=== PATIENT | male | born 1995 | race Caucasian/White ===

== ENCOUNTER 2025-01-22 14:42 | Emergency (ER) | payer SELFPAY ==
[2025-01-22] VITALS (15 sets, daily range): BP systolic 114–149; BP diastolic 65–93; PULSE 62–85; TEMP 36.9; O2SAT 95–100; BMI 40.4
--- NOTE | 2025-01-22 15:08 | ED_ITS ---
HPI HPI - General Adult General Chief complaint: Chest Pain Stated complaint: chest pain Time Seen by Provider: 01/22/25 15:07 Source: patient Mode of arrival: walk-in Limitations: no limitations History of Present Illness HPI narrative: Patient is a 29-year-old male presents to the ER with concerns of left-sided chest pain. The patient can localize the pain to the left axillary with ten derness to palpation and movement of the left arm he also has bruising noted to the left forearm which she is unsure of where this came from. Patient reports symptoms have been present for 5 days before the onset of symptoms patient admits to using crack cocaine in which she smokes and notes that he was on a cocaine binge. He denies any shortness of breath but admits that he has wheezing from time to time from tobacco and marijuana smoking. I occasionally cough stuff up. He denies any fevers or chills. He reports his mother had a history of coronary artery disease and he expressed this is his main concern. He reports his current discomfort is mild worse with movement and palpation. He denies any abdominal pain nausea or vomiting he denies any back pain or diarrhea. He denies injecting any drugs. Patient calm and in no apparent distress at this time. Related Data Previous Rx's ?Medication ?Instructions ?Recorded methylprednisolone 4 mg tablets in 4 mg PO DAILY #21 ea 01/22/25 a dose pack (Medrol (Junior)) Allergies Allergy/AdvReac Type Severity Reaction Status Date / Time No Known Drug Allergies Allergy Verified 01/22/25 14:53 Opioid HPI Opioid Management Most Recent Opioid Data: Last Pain Scale 4 01/22/25 15:48 01/22/25 Last MAR Pain Assessment 01/22/25 15:48 Review of Systems ROS Constitutional Denies: fever, chills or change in weight Eyes Denies: change in vision or blurry vision Ears, nose, mouth, and throat Denies: throat pain, neck pain, throat swelling, difficulty swallowing or mouth pain Cardiovascular Reports: chest pain; Denies: palpitations, edema, swelling of feet/ankles, lightheadedness or shortness of breath with exertion Respiratory Reports: cough and wheezing; Denies: shortness of breath, stridor, pain on inspiration, change in phlegm color or coughing up blood Gastrointestinal Denies: abdominal pain, nausea or vomiting Genitourinary Denies: painful urination, urinary frequency or urinary urgency Musculoskeletal Denies: back pain, neck pain or extremity pain Integumentary/Breast Denies: rash, itching, redness or skin pain Neurological Denies: headache Psychiatric Denies: anxiety Hematologic/Lymphatic Denies: easy bruising Exam Narrative Exam Narrative: Nurses notes and vital signs reviewed and patient is not hypoxic. General: The patient appears well and in no apparent distress. Patient is resting comfortably on cart. Skin: Warm, dry, no pallor noted. Head: Normocephalic, atraumatic Neck: Supple, trachea mid-line, no tenderness, no lymphadenopathy Eye: Pupils are equal, round and reactive to light, EOMI Ears, Nose, Mouth, and Throat: TM are clear, normal light reflex, oral mucosa is moist, no posterior oropharynx erythema or hypertrophy, uvula is mid-line Cardiovascular: Regular Rate and Rhythm Respiratory: Patient is in no distress, no accessory muscle use, lungs are clear to auscultation, Tory wheeze that clears with cough, no rales or rhonchi. Chest Wall: Notable crepitus there is some tenderness left upper lateral chest wall tenderness near the pec insertion on the proximal humerus. Back: non-tender, no CVA tenderness Musculoskeletal: normal ROM, no tenderness, no swelling, faint linear bruising left forearm and medial biceps that is nontender, remote biceps tear noted by pt with mild popey deformity. no evidence of erythema or abscess patient has tenderness to the left AC joint and left proximal bicep without evidence of deformity full range of motion of the left shoulder axilla inspected without evidence of abscess or lymphadenopathy. Tenderness is noted to the left distal pec insertion. No clavicular tenderness. Full use of the bilateral upper extremities. GI: Normal bowel sounds, no tenderness to palpation, no masses appreciated. No rebound, guarding, or rigidity noted. Neurological: A&O x4 Psychiatric: Cooperative Constitutional Vital Signs, click to edit/add: Last Vital Signs Temp 98.4 F 01/22/25 14:53 Pulse 76 01/22/25 16:20 Resp 18 01/22/25 16:20 BP 118/74 01/22/25 16:30 Pulse Ox 95 01/22/25 16:20 O2 Del Method Room Air 01/22/25 15:37 Course Vital Signs Vital signs: Vital Signs Pulse Oximetry 100 01/22/25 14:50 Temperature 98.4 F 01/22/25 14:53 Pulse Rate 76 01/22/25 16:20 Respiratory Rate 18 01/22/25 16:20 Blood Pressure 118/74 01/22/25 16:30 Pulse Oximetry 95 01/22/25 16:20 Oxygen Delivery Method Room Air 01/22/25 15:37 Medical Decision Making MDM Narrative Medical decision making narrative: Discussed patient's symptoms over 5 days possible musculoskeletal given reproducibility on exam risk factors discussed with admission to smoking crack cocaine frequently prior to symptom onset. Labs were performed we discussed a breathing treatment and chest x-ray. He denies any fevers or chills and the patient is not hypoxic. No pleuritic pain noted. Patient reevaluated after receiving IV Toradol and breathing treatment he reports no significant change in his symptoms he has tenderness to the left AC joint pain in the left lateral chest with certain motions of his left arm we discussed his blood work and symptoms for 5 days likely not cardiac. We an extensive discussion at the bedside regarding his drug use and family history of coronary artery disease. Patient verbalized understanding with family at bedside that he is at risk for with his illicit drug use, and we have encouraged him to find sobriety and will give him resources. He also be given local family doctor for follow-up. His pain appears to be myofascial with reproducible left AC joint pain and pain with some motion of the left shoulder we we will place him on a Medrol Dosepak with the risks and benefits discussed. Patient thankful for an appointment discussed the steroid may also help his lung inflammation but he is encouraged to cut back on his marijuana use. Patient has no further concerns or questions. PERC Score is 0 Wells PE Criteria is 0 The patient is to followup with primary care physician in next 2-3 days or to return to the emergency department should any of the signs or symptoms worsen or new symptoms develop. Patient had questions answered. The patient agrees with the following Diagnosis and Treatment plan and the patient will be discharged home. Lab Data Lab results reviewed: Yes I reviewed the patient's lab results Labs: Lab Results 01/22/25 01/22/25 Range/Units 15:06 15:17 WBC 10.6 (4.0-11.0) 10^3/uL RBC 5.12 (4.70-6.10) 10^6/uL Hgb 15.6 (14.0-18.0) g/dL Hct 44.3 (42.0-54.0) % MCV 86.5 (80.0-94.0) fL MCH 30.5 (25.9-34.0) pg MCHC 35.2 (29.9-35.2) g/dL RDW 12.2 (11.0-15.0) % Plt Count 197 (150-450) 10^3/uL MPV 11.5 (9.5-13.5) fL Neut % (Auto) 74.5 (43.0-75.0) % Lymph % (Auto) 15.3 L (20.5-60.0) % Villalba % (Auto) 7.9 (1.7-12.0) % Eos % (Auto) 1.8 (0.9-7.0) % Baso % (Auto) 0.3 (0.2-2.0) % Neut # (Auto) 7.9 H (1.4-6.5) 10^3/uL Lymph # (Auto) 1.6 (1.2-3.8) 10^3/uL Villalba # (Auto) 0.8 (0.3-0.8) 10^3/uL Eos # (Auto) 0.2 (0.0-0.7) 10^3/uL Baso # (Auto) 0.0 (0.0-0.1) 10^3/uL Abs Immat Gran (auto) 0.02 (0.00-0.03) 10^3/uL Imm/Tot Granulo (auto) 0.2 (0.0-0.5) % Sodium 140 (136-145) mmol/L Potassium 4.1 (3.5-5.1) mmol/L Chloride 104 (98-107) mmol/L Carbon Dioxide 28.7 (21.0-32.0) mmol/L Anion Gap 11.4 BUN 18.0 (7.0-18.0) mg/dL Creatinine 1.03 (0.70-1.30) mg/dL Est GFR ( Amer) >60 (>=60 mL/min/1.73m^2) Est GFR (Non-Af Amer) >60 (>=60 mL/min/1.73m^2) BUN/Creatinine Ratio 17.5 Glucose 97 (74-106) mg/dL Calcium 9.4 (8.5-10.1) mg/dL Total Bilirubin 0.7 (0.2-1.0) mg/dL AST 18 (15-37) U/L ALT 30 (16-63) U/L Alkaline Phosphatase 64 (46-116) U/L Troponin I High Sens 4.3 (4.0-76.1) pg/mL Total Protein 7.2 (6.4-8.2) g/dL Albumin 4.2 (3.4-5.0) g/dL Globulin 3.0 g/dL Albumin/Globulin Ratio 1.4 Lipase 20.0 (16.0-77.0) U/L Urine Color Dk yellow (YELLOW) Urine Clarity Clear (CLEAR) Urine pH 6.0 (5.0-9.0) Ur Specific [place] 1.025 (1.005-1.025) Urine Protein Negative (NEG/TRACE) mg/dL Urine Glucose (UA) Negative (NEGATIVE) mg/dL Urine Ketones Trace A (NEGATIVE) mg/dL Urine Occult Blood Negative (NEGATIVE) Urine Nitrite Negative (NEGATIVE) Urine Bilirubin Negative (NEGATIVE) Urine Urobilinogen 1.0 (0.2-1.0) EU/dL Ur Leukocyte Esterase Negative (NEGATIVE) Imaging Data Chest x-ray: Radiologist's impression: ITS Impressions Chest X-Ray 01/22/25 15:08 IMPRESSION: NEGATIVE CHEST. Impression dictated by: Dion Orta Jr., D.O.01/22/2025 4:24 PM Dictation [facility] Electron[facility] authenticated by: [id number] Y Date: 01/22/2025 16:24 ECG Data Attestation: I personally reviewed and interpreted this ECG as follows: Interpretation: EKG interpretation: Emergency Department physician interpretation, normal sinus rhythm 76 bpm no ectopy, no ST segment elevation, normal axis. Discharge Plan Discharge Chief Complaint: Chest Pain Clinical Impression: Anterior chest wall pain, Left shoulder pain Patient Disposition: Home, Self-Care Time of Disposition Decision: 16:42 Condition: Good Prescriptions / Home Meds: New methylprednisolone [Medrol (Junior)] 4 mg tablets,dose pack 4 mg PO DAILY Qty: 21 0RF Print Language: Sami Instructions: Chest Pain (ED), Shoulder Pain (ED) Referrals: [facility] [Outside] - As soon as possible Candido Sinclair MD [Physician] - As soon as possible Tay Archibald MD [Physician] - As soon as possible Discharge Date/Time: 01/22/25 16:53
--- NOTE | 2025-01-22 15:08 | XR_ITS ---
The [place] [id number] Patient Name: NATHANIEL BLANCA MRN: [id number] date: 1995 Sex: M Assigned Patient Location: ER Current Patient Location: ER Accession/Order Number: [id number] Exam Date: 01/22/2025 16:23 Report Date: 01/22/2025 16:24 At the request of: ABRAHAM ZARATE Procedure: XR chest 1V Single view chest: CLINICAL HISTORY: chest pain COMPARISON: None FINDINGS: The heart is normal in size. The lungs are clear. The pulmonary vasculature is normal. Mediastinum and hilar regions are unremarkable. No pleural effusions are seen. Visualized bones are intact. XR/XR chest 1V IMPRESSION: NEGATIVE CHEST. Impression dictated by: Jose Mello Jr.OMiryam01/22/2025 4:24 PM [facility]ation [facility] Electronically authenticated by: [id number] Y Date: 01/22/2025 16:24
--- NOTE | 2025-01-22 15:08 | ECG_ITS ---
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
[2025-01-22 15:27] LABS: Bilirubin Urine NEGATIVE (NEGATIVE); Blood Urine NEGATIVE (NEGATIVE); Clarity Urine CLEAR (CLEAR); Glucose Urine UA NEGATIVE (NEGATIVE); Ketones Urine TRACE mg/dL (NEGATIVE); Leukocyte Esterase Urine NEGATIVE (NEGATIVE); Nitrite Urine NEGATIVE (NEGATIVE); Protein Urine NEGATIVE (NEG/TRACE); Specific Gravity Urine 1.025 (1.005-1.025)
[2025-01-22 15:27] LABS: Basophils Percent Auto 0.3 % (0.2-2.0); Eosinophils Absolute Auto 0.2 10^3/uL (0.0-0.7); Eosinophils Percent Auto 1.8 % (0.9-7.0); Hematocrit 44.3 % (42.0-54.0); Hemoglobin 15.6 g/dL (14.0-18.0); Immature Granulocytes Abs Auto 0.02 10^3/uL (0.00-0.03); Immature Granulocytes Pct Auto 0.2 % (0.0-0.5); Lymphocytes Absolute Auto 1.6 10^3/uL (1.2-3.8); Lymphocytes Percent Auto 15.3 % (20.5-60.0); Mean Corpuscular HGB Conc 35.2 g/dL (29.9-35.2); Mean Corpuscular Hemoglobin 30.5 pg (25.9-34.0); Mean Corpuscular Volume 86.5 fL (80.0-94.0); Mean Platelet Volume 11.5 fL (9.5-13.5); Monocytes Absolute Auto 0.8 10^3/uL (0.3-0.8); Monocytes Percent Auto 7.9 % (1.7-12.0); Neutrophils Absolute Auto 7.9 10^3/uL (1.4-6.5); Neutrophils Percent Auto 74.5 % (43.0-75.0); Platelet Count 197 10^3/uL (150-450); Red Blood Count 5.12 10^6/uL (4.70-6.10); Red Cell Distribution Width 12.2 % (11.0-15.0); White Blood Count 10.6 10^3/uL (4.0-11.0)
[2025-01-22 15:28] LABS: Color Urine DK YELLOW (YELLOW)
[2025-01-22 15:29] LABS: Urine Microscopic Indicated NO
[2025-01-22] MEDS: IPRATROPIUM/ALBUTEROL SULFATE 3 ML AMPUL.NEB IH (15:36)
[2025-01-22 15:42] LABS: Alanine Aminotransferase 30 U/L (16-63); Albumin Globulin Ratio 1.4; Albumin Level 4.2 g/dL (3.4-5.0); Alkaline Phosphatase 64 U/L (46-116); Anion Gap 11.4; Aspartate Amino Transferase 18 U/L (15-37); BUN Creatinine Ratio 17.5; Bilirubin Total 0.7 mg/dL (0.2-1.0); Calcium 9.4 mg/dL (8.5-10.1); Carbon Dioxide 28.7 mmol/L (21.0-32.0); Chloride 104 mmol/L (98-107); Estimated GFR (African America >60 (>=60 mL/min/1.73m^2); Estimated GFR (Non-African Ame >60 (>=60 mL/min/1.73m^2); Glucose 97 mg/dL (74-106); Potassium 4.1 mmol/L (3.5-5.1); Sodium 140 mmol/L (136-145); Total Protein 7.2 g/dL (6.4-8.2); Troponin I High Sensitivity 4.3 pg/mL (4.0-76.1)
[2025-01-22] MEDS: KETOROLAC TROMETHAMINE 30 MG/ML VIAL IVP (15:48)
== END 2025-01-22 16:53 | disposition home or self-care (01) ==
PROVIDERS: Personal Emergency Response Attendant; Emergency Provider Emergency Medicine
DX: R07.89 Other chest pain (principal); M25.512 Pain in left shoulder; F14.90 Cocaine use, unspecified, uncomplicated; Z82.49 Family history of ischemic heart disease and other diseases of the circulatory system
CPT/HCPCS: 36415; 71045; 80053; 81003; 83690; 84484; 85025; 93005; 94640; 96374; 99285; J1885

== ENCOUNTER 2025-02-26 16:14 | Emergency (ER) | payer OTHER, SELFPAY ==
[2025-02-26 16:16] VITALS: BP 153/85; PULSE 81; TEMP 36.9; O2SAT 99; BMI 39.2
--- OUTSIDE RECORDS SUMMARY | 2025-02-26 16:29 | XMS_ITS | CCD ---
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 Name Role Phone CARMELINA LEE Attending Unavailabl e NO PCP, NO PCP Primary Care Unavailable NO PCP, NO PCP Primary Care Unavailable MARILYN PAK Attending Unavailable Problems Active Problems Problem Classification Problem Date Documented Da te Episodic/Chronic Anxiety disorders (1 source) Mental health problem Onset: 02-27-2024 Chronic Nonspecific chest pain (3 sources) Other chest pain; Translations: [Chest pain, unspecified] Onset: 02-21-2025 Episodic Unclassified (1 source) Mental Health Evaluation Onset: 02-27-2024 Past or Other Problems Problem Classification Problem Date Documented Da te Episodic/Chronic Administrative/social admission (1 source) Persons encountering health services in other specified circumstances; Translations: [Persons encountering health services in other specified circumstances] Onset: 02-27-2024 Episodic Other injuries and conditions due to external causes (1 source) Other injury of unspecified body region, initial encounter; Translations: [Other injury of unspecified body region, initial encounter] Onset: 02-27-2024 Episodic Results Test Name Value Interpretation Reference Range Facil ity CBC AND AUTO DIFFon 02-22-20 25 ABSOLUTE BASOPHIL 0.0 X10E9/L Normal 0.0-0.2 [facility] Comment on above: Performed By: #### C BCA, CMP, 35869-6 #### [facility] ([id number]) [address] [place] [address] 33971 ABSOLUTE NEUTROPHIL 6.1 X10E9/L Normal 1.5-6.6 [facility] Comment on above: Performed By: #### C BCA, CMP, 33282-4 #### [facility] ([id number]) [address] [place] [address] 31334 Basophils/100 WBC (Bld) 0.3 % Normal [facility] Comment on above: Performed By: #### Ilan HAMLIN CMP, 41866-9 #### [facility] ([id number]) [address] [place] [address] 85645 Eosinophils (Bld) [#/Vol] 0.2 10*3/uL Normal 0.0-0.4 [facility] Comment on above: Performed By: #### Ilan HAMLIN CMP, 66202-8 #### [facility] ([id number]) [address] [place] [address] 43141 Eosinophils/100 WBC (Bld) 2.0 % Normal [facility] Comment on above: Performed By: #### Ilan HAMLIN CMP, 92465-7 #### [facility] ([id number]) [address] [place] [address] 91055 Erythrocyte distribution width (RBC) [Ratio] 14.1 % Normal 11.5-15.0 [facility] Comment on above: Performed By: #### Ilan HAMLNI [facility], 45254-1 #### [facility] ([id number]) [address] [place] [address] 53568 Hematocrit (Bld) [Volume fraction] 44.7 % Normal 39-49 [facility] Comment on above: Performed By: #### Ilan HAMLIN CMP, 26529-6 #### [facility] ([id number]) [address] [place] [address] 87984 Hemoglobin (Bld) [Mass/Vol] 15.5 g/dL Normal 13.0-17.0 [facility] Comment on above: Performed By: #### Ilan HAMLIN CMP, 49709-3 #### [facility] ([id number]) [address] [place] [address] 75894 Lymphocytes (Bld) [#/Vol] 1.9 10*3/uL Normal 1.0-3.5 [facility] Comment on above: Performed By: #### C HETAL HAMLIN, 89571-2 #### [facility] ([id number]) [address] [place] [address] 57118 Lymphocytes/100 WBC (Bld) 21.4 % Normal [facility] Comment on above: Performed By: #### Ilan HAMLIN CMP, 37889-6 #### [facility] ([id number]) [address] [place] [address] 05468 MCH (RBC) [Entitic mass] 30.5 pg Normal 27-34 [facility] Comment on above: Performed By: #### Ilan HAMLIN CMP, 16447-4 #### [facility] ([id number]) [address] [place] [address] 97804 MCHC (RBC) [Mass/Vol] 34.7 g/dL Normal 32-36 [facility] Comment on above: Performed By: #### Ilan HAMLIN CMP, 89900-4 #### [facility] ([id number]) [address] [place] [address] 88181 MCV (RBC) [Entitic vol] 88 fL Normal 80-100 [facility] Comment on above: Performed By: #### Ilan HAMLIN CMP, 75626-8 #### [facility] ([id number]) [address] [place] [address] 69583 Monocytes (Bld) [#/Vol] 0.8 10*3/uL Normal 0-0.9 [facility] Comment on above: Performed By: #### Ilan HAMLIN CMP, 64123-1 #### [facility] ([id number]) [address] [place] [address] 35425 Monocytes/100 WBC (Bld) 9.2 % Normal [facility] Comment on above: Performed By: #### Ilan HAMLIN CMP, 87997-6 #### [facility] ([id number]) [address] [place] [address] 77460 Neutrophils/100 WBC (Bld) 67.1 % Normal [facility] Comment on above: Performed By: #### C BOUBACAR, CMP, 09027-7 #### [facility] ([id number]) [address] [place] [address] 00935 Platelet mean volume (Bld) [Entitic vol] 9.2 fL Normal 7-12 [facility] Comment on above: Performed By: #### Ilan HAMLIN, CMP, 77792-9 #### [facility] ([id number]) [address] [place] [address] 70464 Platelets (Bld) [#/Vol] 216 10*3/uL Normal 150-450 [facility] Comment on above: Performed By: #### Ilan HAMLIN, CMP, 66911-4 #### [facility] ([id number]) [address] [place] [address] 46859 RBC COUNT 5.08 X10E12/L Normal 4.10-5.70 [facility] Comment on above: Performed By: #### Ilan HAMLIN, CMP, 38836-8 #### [facility] ([id number]) [address] [place] [address] 39147 WBC (Bld) [#/Vol] 9.0 10*3/uL Normal 4.0-11.0 [facility] Comment on above: Performed By: #### Ilan HAMLIN, CMP, 23894-5 #### [facility] ([id number]) [address] [place] [address] 84785 COMPREHENSIVE METABOLIC PANE [place] 02-21-2025 Albumin [Mass/Vol] 4.5 g/dL Normal 3.2-5.3 [facility] Comment on above: Performed By: #### Ilan HAMLIN, CMP, 67254-1 #### [facility] ([id number]) [address] [place] [address] 11916 ALP [Catalytic activity/Vol] 50 U/L Normal 39-130 [facility] Comment on above: Performed By: #### C BOUBACAR, CMP, 71322-9 #### [facility] ([id number]) [address] [place] [address] 76294 ALT [Catalytic activity/Vol] 37 U/L Normal 0-40 [facility] Comment on above: Performed By: #### C BOUBACAR, HETAL, 54828-9 #### [facility] ([id number]) [address] [place] [address] 43933 Anion gap [Moles/Vol] 6 mmol/L Normal 5-15 [facility] Comment on above: Performed By: #### Ilan HAMLIN, HETAL, 84638-3 #### [facility] ([id number]) [address] [place] [address] 38237 AST [Catalytic activity/Vol] 42 U/L High 0-41 [facility] Comment on above: Performed By: #### Ilan HAMLIN, [facility], 45717-5 #### [facility] ([id number]) [address] [place] [address] 51488 Bilirubin [Mass/Vol] 0.9 mg/dL Normal 0.3-1.2 [facility] Comment on above: Performed By: #### C BCA, CMP, 42637-8 #### [facility] ([id number]) [address] [place] [address] 90329 Calcium [Mass/Vol] 9.5 mg/dL Normal 8.5-10.5 [facility] Comment on above: Performed By: #### C BOUBACAR, CMP, 98674-8 #### [facility] ([id number]) [address] [place] [address] 87680 Chloride [Moles/Vol] 104 mmol/L Normal 98-109 [facility] Comment on above: Performed By: #### C HETAL HAMLIN, 73529-9 #### [facility] ([id number]) [address] [place] [address] 63466 CO2 [Moles/Vol] 25 mmol/L Normal 22-32 [facility] Comment on above: Performed By: #### C HETAL HAMLIN, 41765-9 #### [facility] ([id number]) [address] [place] [address] 17028 Creatinine [Mass/Vol] 0.95 mg/dL Normal 0.70-1.20 [facility] Comment on above: Result Comment: METH OD TRACEABLE TO IDMS STANDARD Performed By: #### C HETAL HAMLIN, 84814-6 #### [facility] ([id number]) [address] [place] [address] 17712 eGFR (CKD-EPI) NON-RACE DEPENDENT >90 Normal >59 [facility] Comment on above: Result Comment: Reported eGFR is based on the CKD-EPI 2020 equation that does not use a race coefficient. Performed By: #### C HETAL HAMLIN, 63459-8 #### [facility] ([id number]) [address] [place] [address] 59859 Glucose [Mass/Vol] 88 mg/dL Normal 65-99 [facility] Comment on above: Performed By: #### C HETAL HAMLIN, 02160-6 #### [facility] ([id number]) [address] [place] [address] 49067 Potassium [Moles/Vol] 3.9 mmol/L Normal 3.5-5.0 [facility] Comment on above: Performed By: #### C HETAL HAMLIN, 68382-9 #### [facility] ([id number]) [address] [place] [address] 10454 Protein [Mass/Vol] 7.5 g/dL Normal 6.0-8.0 [facility] Comment on above: Performed By: #### C HETAL HAMLIN, 01210-8 #### [facility] ([id number]) [address] [place] [address] 17469 Sodium [Moles/Vol] 135 mmol/L Normal 134-146 [facility] Comment on above: Performed By: #### Ilan HAMLIN CMP, 44892-5 #### [facility] ([id number]) [address] [place] [address] 87537 Urea nitrogen [Mass/Vol] 23 mg/dL Normal 5-23 [facility] Comment on above: Performed By: #### Ilan HAMLIN CMP, 03072-9 #### [facility] ([id number]) [address] [place] [address] 85765 Troponin I.cardiac High sens itivity method [Mass/Vol]on 02-21-2025 TROPONIN I, HIGH SENSITIVITY 3 ng/L Normal <21 [facility] Comment on above: Performed By: #### Ilan HAMLIN [facility], 90100-7 #### [facility] ([id number]) [address] [place] [address] 01552 Encounters Encounter Date Encounter Type Care Provider Facility Start: 02-21-2025 End: 02-21-2025 Emergency department patient visit NO PCP NO PCP [facility] Start: 02-27-2024 End: 02-27-2024 Emergency department patient visit CARMELINA LEE [facility] Payers Date Payer Category Payer Medicaid [id number] 1995 Unknown [id number] 1995 Unknown [id number] Summary Purpose Family History No Family History Records Found Advance Directives No Advanced Directives Records Found Additional Source Comments (unrecognized sect ion and content) No Status Records Found INFORMATION SOURCE (unrecogn ized section and content) DATE CREATED AUTHOR 02/23/2025 [facility] FOR RECORDS PERTAINING TO PATIENTS WHO ARE OR HAVE BEEN ENROLLED IN A CHEMICAL DEPENDENCY/SUBSTANCEABUSE PROGRAM, SOME INFORMATION MAY BE OMITTED. This clinical summary was aggregated from multiple sources. Caution should be exercised in using it in the provision of clinical care. This summary normalizes information from multiple sources, and as a consequence, information in this document may materially change the coding, format and clinical context of patient data. In addition, data may be omitted in some cases. CLINICAL DECISIONS SHOULD BE BASED ON THE PRIMARY CLINICAL RECORDS. [employer] provides no warranty or guarantee of the accuracy or completeness of information in this document.
--- NOTE | 2025-02-26 16:44 | ED.BACK1 ---
HPI HPI - Back Pain/Injury General Chief Complaint: Back Pain/Injury Stated Complaint: BACK/FLANK PAIN Time Seen by Provider: 02/26/25 16:23 Source: patient Mode of arrival: walk-in Limitations: no limitations History of Present Illness HPI Narrative: The patient is coming to the ER with a chest wall pain that been going on at least for a month, he mentioned that the pain was in the back of the chest mostly at the scapular area on the left side, he initially was worked up almost a month ago for that pain without a whole workup showing no acute pathology He noted that the pain comes and goes in certain movement and taking a deep breath sometimes. He was reading online about blood clot and he is worried about the The patient does not have the pain at the moment he have the pain sometimes sitting position when he is reaching out or exercising. And usually exercising make it better Related Data Previous Rx's ?Medication ?Instructions ?Recorded methylprednisolone 4 mg tablets in 4 mg PO DAILY #21 ea 01/22/25 a dose pack (Medrol (Junior)) diclofenac sodium 75 mg 75 mg PO BID PRN pain #14 tabs 02/26/25 tablet,delayed release orphenadrine citrate 100 mg 100 mg PO ONCE PRN muscle spasm 02/26/25 tablet,extended release #10 tabs Allergies Allergy/AdvReac Type Severity Reaction Status Date / Time No Known Drug Allergies Allergy Verified 01/22/25 14:53 Opioid HPI Opioid Management Most Recent Opioid Data: Last Pain Scale 4 01/22/25 15:48 01/22/25 Review of Systems ROS Status of ROS 10 or more systems reviewed and unremarkable except as noted in history and below PFSH PFSH Social History Little interest or pleasure in doing things: not at all Feeling down, depressed, or hopeless: not at all Exam Narrative Exam Narrative: Nurses notes and vital signs reviewed and patient is not hypoxic. General: Well-appearing and in no apparent distress. Skin: Warm, dry, no pallor noted. No rash. Head: Normocephalic, atraumatic. Neck: Supple, non-tender. Cardiovascular: Regular Rate and Rhythm without murmur, gallop or rub. Respiratory: No accessory muscle use or respiratory distress. Lungs are clear to auscultation, no wheezing, rales or rhonchi Chest Wall: Scapular area at the site of pain which I could not induce with tenderness at the moment although abduction of the left arm due to the pain Back: No midline thoracic or lumbar vertebral tenderness. No CVA tenderness Musculoskeletal: normal ROM, no calf or popliteal tenderness, no lower extremity edema/swelling GI: Abdomen is soft, non-distended. Normal bowel sounds. No masses appreciated. No tenderness to palpation. No rebound, guarding, or rigidity noted. Constitutional Vital Signs, click to edit/add: Last Vital Signs Temp 98.5 F 02/26/25 16:16 Pulse 81 02/26/25 16:16 Resp 18 02/26/25 16:16 BP 153/85 H 02/26/25 16:16 Pulse Ox 99 02/26/25 16:16 O2 Del Method Room Air 02/26/25 16:16 Course Vital Signs Vital signs: Vital Signs Temperature 98.5 F 02/26/25 16:16 Pulse Rate 81 02/26/25 16:16 Respiratory Rate 18 02/26/25 16:16 Blood Pressure 153/85 H 02/26/25 16:16 Pulse Oximetry 99 02/26/25 16:16 Oxygen Delivery Method Room Air 02/26/25 16:16 Temperature 98.5 F 02/26/25 16:16 Pulse Rate 81 02/26/25 16:16 Respiratory Rate 18 02/26/25 16:16 Blood Pressure 153/85 H 02/26/25 16:16 Pulse Oximetry 99 02/26/25 16:16 Oxygen Delivery Method Room Air 02/26/25 16:16 MDM - Back Pain/Injury MDM Narrative Medical decision making narrative: The patient exercises at the gym and he mentioned that sometimes the pain will be there and he when he exercises get better, the patient pain mostly muscular and the way that he is describing it with no risk factors and having the pain on and off for the last month with certain movement and taking a deep breath The patient will be treated with Voltaren for the next 5 days in addition to Norflex The patient will come back in case of any new symptoms or worsening of his current symptoms Patient is not a cigarette smoker and he does not have any history of hypertension or diabetes The patient is to follow up with primary care physician in next 2-3 days or to return to the emergency department should any of the signs or symptoms worsen or new symptoms develop. The patient agrees with the following Diagnosis and Treatment plan and the patient will be discharged home. Discharge Plan Discharge Chief Complaint: Back Pain/Injury Clinical Impression: Chest wall pain Patient Disposition: Home, Self-Care Time of Disposition Decision: 16:45 Condition: Good Prescriptions / Home Meds: New diclofenac sodium 75 mg tablet,delayed release (DR/EC) 75 mg PO BID PRN (Reason: pain) Qty: 14 0RF orphenadrine citrate 100 mg tablet extended release 100 mg PO ONCE PRN (Reason: muscle spasm) Qty: 10 0RF No Action methylprednisolone [Medrol (Junior)] 4 mg tablets,dose pack 4 mg PO DAILY Qty: 21 0RF Print Language: [place] Instructions: Chest Wall Pain (ED) Referrals: Physician,Non-Staff, MD [Primary Care Provider] - 1 week Discharge Date/Time: 02/26/25 16:58
== END 2025-02-26 16:58 | disposition home or self-care (01) ==
PROVIDERS: Emergency Provider Emergency Medicine
DX: R07.89 Other chest pain (principal)
CPT/HCPCS: 99283